=== PATIENT | male | born 1995 | race Caucasian/White ===

== ENCOUNTER 2017-04-08 10:14 | Emergency (ER) | payer BC ==
[2017-04-08 10:27] VITALS: BP 134/73
--- NOTE | 2017-04-08 11:13 | UC ---
Skin Complaint HPI - HPI Summary HPI Summary: EXPOSED TO POISON SANJU AT [employer] ONE WEEK AGO. DEVELOPED BLISTERING RASH ON LEFT ANKLE. HAS BEEN WORSENING OVER LAST THREE DAYS. - History of Current Complaint Chief Complaint: UCLowerExtremity Time Seen by Provider: 04/08/17 10:53 Stated Complaint: RASH Hx Obtained From: Patient Onset/Duration: Gradual Onset, Lasting Days, Still Present Skin Exposure Onset/Duration: Days Ago Onset Severity: Mild Current Severity: Moderate Location: Discrete - LEFT ANKLE Character: Pruritus, Redness, Raised Aggravating: Nothing Alleviating: Nothing Associated Signs & Symptoms: Positive: Rash - LEFT ANKLE, Drainage. Negative: Fever, Wheezing, Chest Pain, Hoarseness, Throat Tightening, Tenderness, Red Streaks Related History: Possible Reaction to: Environmental Exposure - Allergy/Home Medications Allergies/Adverse Reactions: Allergies Allergy/AdvReac Type Severity Reaction Status Date / Time No Known Allergies Allergy Verified 04/08/17 10:20 Review of Systems Constitutional: Negative Skin: Rash Eyes: Negative ENT: Negative Respiratory: Negative Cardiovascular: Negative Gastrointestinal: Negative Genitourinary: Negative Motor: Negative Neurovascular: Negative Musculoskeletal: Negative Neurological: Negative Psychological: Negative All Other Systems Reviewed And Are Negative: Yes PMH/Surg Hx/FS Hx/Imm Hx Previously Healthy: Yes - Surgical History Surgical History: Yes Surgery Procedure, Year, and Place: wisdom teeth removal 2008 - Family History Known Family History: Negative: Respiratory Disease - Social History Occupation: Employed Full-time Lives: With Family Alcohol Use: Weekly Alcohol Amount: beer Substance Use Type: Marijuana Smoking Status (MU): Never Smoked Tobacco Amount Used/How Often: everyday Length of Time of Smoking/Using Tobacco: 4 years - Immunization History Most Recent Influenza Vaccination: unknown Most Recent Tetanus Shot: unknown Physical Exam Triage Information Reviewed: Yes Appearance: Well-Appearing, No Pain Distress, Well-Nourished Vital Signs: Initial Vital Signs Temp 99.2 F 04/08/17 10:20 Pulse 73 04/08/17 10:20 Resp 16 04/08/17 10:20 BP 134/73 04/08/17 10:20 Pulse Ox 100 04/08/17 10:20 Vital Signs Reviewed: Yes Eye Exam: Normal ENT Exam: Normal ENT: Positive: Normal ENT inspection Dental Exam: Normal Neck exam: Normal Respiratory Exam: Normal Respiratory: Positive: Chest non-tender, Lungs clear, Normal breath sounds, No respiratory distress Cardiovascular Exam: Normal Cardiovascular: Positive: RRR, No Murmur Abdominal Exam: Normal Musculoskeletal Exam: Normal Neurological Exam: Normal Psychological Exam: Normal Skin: Positive: rashes - LEFT ANKLE BLISTERING WEEPING RASH Course/Dx - Differential Diagnoses - Skin Complaint Differential Diagnoses: Cellulitis, Eczema, Impetigo, Poison Sanju, Poison [place], Varicella Zoster - Diagnoses Provider Diagnoses: LEFT ANKLE POISON SANJU RASH Discharge - Discharge Plan Condition: Stable Disposition: HOME Prescriptions: Triamcinolone 0.5% CREAM(NF) [Triamcinolone 0.5% CREAM*] 1 applic TOPICAL TID # 1 tube Patient Education Materials: Poison Sanju (ED) Forms: *Work Release Referrals: [facility] [Outside] No Primary Care Phys,NOPCP [Primary Care Provider] - Additional Instructions: PRIMARY CARE: There are four major types of clinical preventive care: immunizations, screening , behavioral counseling (sometimes referred to as lifestyle changes), and chemoprevention. All four apply throughout the life span. It is important to establish and to have access to a Primary Care Physician, not only for follow- up regrding acute and chronic problems, but also for preventative care. Images Feet (Multiple View): 1 - 4CM X 5CM BLISTERING WEEPING RASH
== END 2017-04-08 11:08 | disposition home or self-care (01) ==
LOC: UCEAST 10:14
DX: L23.7 Allergic contact dermatitis due to plants, except food (principal); F12.90 Cannabis use, unspecified, uncomplicated
CPT/HCPCS: 99202; G0463

== ENCOUNTER 2017-04-19 10:20 | Emergency (ER) | payer BC ==
[2017-04-19 10:30] VITALS: BP 145/75
--- NOTE | 2017-04-19 11:37 | UC ---
Skin Complaint HPI - HPI Summary HPI Summary: Pt presents to with progression of his poison christian rash. Pt was at work approx 11 days ago and was exposed to poison christian on his feet and ankles. Pt initially with lesions on left ankle - was given Rx steroid cream. Pt states this patch has improved, but progressive has developed blistered rash and itching on b/l dorsum feet and ankles. PT state steroid cream doesn't seem "enough" pt has taken benadryl with some improvement. PT states has also developed some lesions on hands. Pt denies fever, chills. No difficulty breathing, itnraoral swelling or lesions on face. Pt without other complaints. Pt states has been wearing same shoes that was wearing at time of expsoure. Not immunicompromised. Pt's medications reviewed at this visit. - History of Current Complaint Chief Complaint: [facility] Time Seen by Provider: 04/19/17 11:17 Stated Complaint: RASH Hx Obtained From: Patient Onset/Duration: Gradual Onset Skin Exposure Onset/Duration: Days Ago Onset Severity: Mild Current Severity: Mild Pain Intensity: 0 Location: Hand (Right), Hand (Left), Foot (Right), Foot (Left) Aggravating: Nothing Alleviating: Nothing Associated Signs & Symptoms: Positive: Negative - Allergy/Home Medications Allergies/Adverse Reactions: Allergies Allergy/AdvReac Type Severity Reaction Status Date / Time No Known Allergies Allergy Verified 04/19/17 10:25 Home Medications: Home Medications diPHENhydraMINE PO* [Benadryl PO 25 MG TAB*] 1 tab PO 04/19/17 [History] Review of Systems Constitutional: Negative Skin: Rash Eyes: Negative ENT: Negative Respiratory: Negative Cardiovascular: Negative Gastrointestinal: Negative Genitourinary: Negative Motor: Negative Neurovascular: Negative Musculoskeletal: Negative Neurological: Negative Psychological: Negative All Other Systems Reviewed And Are Negative: Yes PMH/Surg Hx/FS Hx/Imm Hx Previously Healthy: Yes - Surgical History Surgical History: Yes Surgery Procedure, Year, and Place: wisdom teeth removal 2008 - Family History Known Family History: Positive: Hypertension Negative: Respiratory Disease - Social History Occupation: Employed Full-time Lives: With Family Alcohol Use: Weekly Alcohol Amount: beer Substance Use Type: Marijuana Substance Use Comment - Amount & Last Used: occasionally Smoking Status (MU): Never Smoked Tobacco Amount Used/How Often: everyday Length of Time of Smoking/Using Tobacco: 4 years - Immunization History Most Recent Influenza Vaccination: unknown Most Recent Tetanus Shot: unknown Physical Exam Triage Information Reviewed: Yes Appearance: Well-Appearing, No Pain Distress, Well-Nourished Vital Signs: Initial Vital Signs Temp 98.3 F 04/19/17 10:26 Pulse 76 04/19/17 10:26 Resp 16 04/19/17 10:26 BP 145/75 04/19/17 10:26 Pulse Ox 99 04/19/17 10:26 Vital Signs Reviewed: Yes Eye Exam: Normal Eyes: Positive: Conjunctiva Clear ENT Exam: Normal ENT: Positive: Normal ENT inspection, Hearing grossly normal, TMs normal Dental Exam: Normal Neck exam: Normal Neck: Positive: Supple, Nontender Respiratory Exam: Normal Respiratory: Positive: Chest non-tender, Lungs clear, Normal breath sounds, No respiratory distress Cardiovascular Exam: Normal Cardiovascular: Positive: RRR, No Murmur, Pulses Normal - 2+ DP, PT CBT < 2 sec Musculoskeletal Exam: Normal Musculoskeletal: Positive: Strength Intact Neurological Exam: Normal Neurological: Positive: Alert Psychological Exam: Normal Skin: Positive: Other - Pt with multiple blister-like lesions to b/l ankles and dorsum of feet. Pt also with patchy, small blisters to b/l hand. raised, erythematous base. Some lesions scabbed. Appear pruritic. No induration, erythema. No concern for infection at time of exam Course/Dx - Course Course Of Treatment: Pt with local blistering lesions on ankles and feet c/w contact dermatitis - pt exposed to poison christian. will give oral pred, benadryl, pepcid. avoid heat. avoid nsaids. return precautions discussed. pt comfortable and in agreement with plan. Pt noted to have elevated BP - recommend recheck and follow up with PCP - Diagnoses Provider Diagnoses: contact dermatitis Discharge - Discharge Plan Condition: Stable Disposition: HOME Prescriptions: Famotidine TAB* [Pepcid 20 MG TAB*] 20 mg PO BID #20 tab predniSONE TAB* [Deltasone TAB*] 20 mg PO DAILY #20 tab Patient Education Materials: Contact Dermatitis (ED) Referrals: [facility] [place] [facility] [Outside] No Primary Care Phys,NOPCP [Primary Care Provider] - Additional Instructions: - take prednisone EXACTLY As prescribed until gone - take pepcid 2 times a day for 10 days as prescribed - Okay to take bendaryl (25-50mg) every 6 hours for itching. This medication may cause drowsiness - do not drive, operate machinery or drink alcohol while taking this medication until you know how you tolerate it - Avoid getting over heated - hot showers, hot tub, exercises for 2-3 days - Avoid NSAIDS - motrin, advil, ibuprofen, Naproxyn for 2-3 days - cleanse clothing that may have been contaminated by the poison christian - call your doctor to schedule a follow-up. If you don't have a primary, you have been given the physician referral contact line - they will assist you getting a primary doctor
== END 2017-04-19 11:52 | disposition home or self-care (01) ==
LOC: UCEAST 10:20
DX: L23.7 Allergic contact dermatitis due to plants, except food (principal)
CPT/HCPCS: 99212; G0463